=== PATIENT | male | born 1965 | race Caucasian/White ===

== ENCOUNTER 2017-10-08 17:49 | Inpatient (IN) ==
[~2017-10-08 17:49] MED LIST: Glycopyrrolate Inj 1 MG/5 ML Syringe IV.PUSH ONE; Lidocaine PF 1% Inj 5 ML Syringe INFILTRATN ONE; Phenylephrine/NS 1000 MCG/10ML Syringe IV.PUSH ONE
--- NOTE | 2017-10-08 19:29 | P.CON ---
History of Present Illness Service: hand surgery Reason for Consult: right hand injury Primary Care Provider: Suellen Arenas Chief Complaint: right hand injury by yarn tester History of Present Illness: Patient is a 52 year old left hand dominant male presenting with injury to the right hand this morning. Patient was trying to the fix the yarn tester blade this morning resulting in injury to the right hand. complains of laceration to the right middle, ring and index fingers. associated with bleeding. denies any numbness. patient was seen at [facility], had x-rays and then later transferred to [facility] as there was no power at [facility]. denies any other injuries. Review of Systems denies any fever, shortness of breath or chest pain PMFSH - Medical History Medical History: Medical History (Last Updated 10/08/17 @ 19:41 by Placido Ruiz MD) Diabetes Hypertension Hypothyroidism Physical Exam Narrative: examination of the right hand:laceration involving the middle finger over the dorsal aspect with avulsion of the nail plate proximally with exposed distal phalanx.finger hanging by the volar soft tissues. intact volar soft tissue. intact capillary refill, intact pulp sensation. laceration involving the pulp of the index finger with exposed soft tissues laceration over the pulp and lateral nail fold involving the ring finger x-rays of the right hand done at [facility] was reviewed: comminuted fracture involving the distal phalanx shaft right middle finger - Constitutional no acute distress - Routine HEENT Exam Head: Present: normocephalic, atraumatic - Routine Respiratory Exam Comments: air entry equal on both sides, no adventitous sounds - Routine Cardiovascular Exam Comments: S1 S2 normal, no murmurs Assessment and Plan - Assessment (1) Open fracture of distal phalanx of right middle finger Code(s): S62.632B - Displaced fracture of distal phalanx of right middle finger , initial encounter for open fracture Status: Acute (2) Laceration of right index finger Code(s): S61.210A - Laceration without foreign body of right index finger without damage to nail, initial encounter Status: Acute (3) Laceration of right ring finger Code(s): S61.214A - Laceration without foreign body of right ring finger without damage to nail, initial encounter Status: Acute - Plan take the patient emergently for wash, debridement, ORIF distal phalanx, nail bed repair right middle finger. repair of lacerations of the right index and ring fingers. keep the patient npo (2) Laceration of right index finger Qualifiers: Encounter type: initial encounter Damage to nail status: without damage Foreign body presence: without foreign body Qualified Code(s): S61.210A - Laceration without foreign body of right index finger without damage to nail, initial encounter (3) Laceration of right ring finger Qualifiers: Encounter type: initial encounter Damage to nail status: without damage Foreign body presence: without foreign body Qualified Code(s): S61.214A - Laceration without foreign body of right ring finger without damage to nail, initial encounter
[2017-10-08] MEDS ORDERED: ceFAZolin 2 GM Premix Inj 2 GM/50 ML PIGGYBACK IV.SIG ONE (19:38)
[2017-10-08] MEDS ORDERED: Neomycin/Polymyxin G.U. Irrigant 1 ML Ampul ONE (20:10)
[2017-10-08] MEDS ORDERED: Bupivacaine PF 0.5% Inj 30 ML Vial ONE (20:15)
[2017-10-08] MEDS ORDERED: Lidocaine PF 2% Inj 10 ML Ampul ONE (20:15)
--- NOTE | 2017-10-08 21:16 | P.OP ---
- Preoperative Diagnosis (1) Open fracture of distal phalanx of right middle finger (2) Laceration of right index finger (3) Laceration of right ring finger (4) Laceration of right middle finger w/o foreign body with damage to nail - Postoperative Diagnosis (1) Laceration of right middle finger w/o foreign body with damage to nail (2) Open fracture of distal phalanx of right middle finger (3) Laceration of right index finger (4) Laceration of right ring finger Date of procedure: 10/08/17 Procedure: wash, debridement, open reduction internal fixation distal phalanx with k-wire right middle finger repair nail bed and laceration right middle finger repair of lacerations right index and ring fingers Implants: 0.035 k-wire X 1 Anesthesia: GETA Surgeon: Placido Ruiz MD Estimated blood loss (mL): 5 Tourniquet time (min): 48 Pathology: none sent Operation and Findings: transverse laceration through the nail bed at the junction of germinal and sterile matrix with exposed distal phalanx shaft fracture and involvement of the radial and ulnar nail folds along with part of pulp laceration of the pulp involving the ring finger measuring 3cms laceration of the pulp involving the index finger measuring 1-2 cms
[2017-10-08] MEDS ORDERED: fentaNYL Citrate Inj 100 MCG/2 ML Ampul ONE (21:25)
--- NOTE | 2017-10-08 21:55 | MP ---
cc: Placido Ruiz MD DATE OF OPERATION: 10/08/2017 DATE OF SURGERY: 10/08/2017. PREOPERATIVE DIAGNOSIS: Open distal phalanx shaft fracture, right middle finger, with laceration involving the nail bed and lateral nail folds. Laceration involving the right index finger pulp and laceration involving the right ring finger pulp. POSTOPERATIVE DIAGNOSIS: Laceration of the right finger with involvement of the nail bed and open, comminuted, displaced shaft fracture, distal phalanx, laceration involving the pulp of the right index finger and laceration involving the pulp of the right ring finger. PROCEDURE PERFORMED: Wash, debridement, open reduction and internal fixation of distal phalanx with K-wire, right middle finger, repair nail bed and laceration, right middle finger, repair lacerations of right index and ring finger pulps. SURGEON: Placido Ruiz MD ANESTHESIA: General. ESTIMATED BLOOD LOSS: 5 mL TOURNIQUET TIME: 48 minutes at 250 mmHg. IMPLANTS USED: 0.035 wires x 1. DISPOSITION: To PACU stable. INDICATIONS FOR PROCEDURE: The patient is a 52-year-old left hand dominant male who presented to the ED with laceration to the right hand this morning, when he was fixing the lawnmower. The patient complains of wound over the right middle, ring and index fingers. On examination, he had a laceration involving the nail plate in a transverse fashion, with exposed distal phalanx at the middle finger and laceration involving the pulp along the radial aspect of the index finger and ring finger. An x-ray showed a comminuted, displaced distal phalanx shaft fracture involving the middle finger. The patient was initially seen at [facility] and he was transferred to [facility]. The patient was explained the risks and benefits of the procedure. The patient was consented for open reduction and internal fixation of distal phalanx, right middle finger along with repair of nail bed and lacerations. The patient was explained the risks and benefits of the procedure. DESCRIPTION OF PROCEDURE: The patient was brought to the operating room under general anesthesia. The right upper extremity was sterilely prepped and draped. After limb elevation, tourniquet was inflated to 250 mmHg. The previously placed sutures were removed. Intraoperative findings included a transverse laceration involving the nail bed at the junction of germinal and sterile matrix in a transverse fashion measuring about 3 cm involving the lateral nail folds along with part of the pulp with open, displaced distal phalanx fracture shaft. This was viewed after removal of the nail plate. An oblique laceration involving the radial aspect of the index finger pulp measuring about 3 cm and laceration along the radial aspect of the pulp of the ring finger, measuring about 1-2 cm. Attention was initially directed to the middle finger. Thorough wash of the wound was carried out using normal saline mixed with irrigant, about 750 mL of solution was used. Following which, attention was directed to the distal phalanx. A 0.035 K-wire was introduced in antegrade fashion from the distal phalanx shaft across the distal fragment, exiting at the hyponychium. Distal phalanx was then reduced and the K-wire was directed in retrograde fashion crossing the proximal phalanx. C-arm was used to confirm the fracture reduction and K-wire placement. The K-wire was then passed across the distal interphalangeal joint. Multiple C-arm views were obtained. The distal phalanx fracture was well reduced and the K-wires were replaced within the distal phalanx and the DIP joint. The nail bed was then repaired using 6-0 chromic in interrupted fashion. The lateral nail folds were then repaired using 4-0 nylon in a horizontal mattress interrupted fashion along with the laceration of the pulp. The nail plate was then cleared of the soft tissue, soaked in Betadine solution and was reinserted underneath the eponychial skin fold. The K-wire was cut and protected with surface involved. Attention was then directed to the index finger. The laceration was thoroughly cleaned with normal saline mixed with irrigant and the laceration was sutured using 5-0 nylon in horizontal mattress interrupted fashion. Attention was then directed to the ring finger, laceration was cleaned with normal saline mixed with irrigant and suturing of laceration was carried out using 5-0 nylon in a horizontal mattress interrupted fashion. Xeroform, bacitracin dressings were applied. Tourniquet was deflated at 48 minutes. He had good distal circulation after release of the tourniquet. About 5 mL of local anesthetic solution containing mixture of 2% and 0.5% Marcaine were injected as a digital block. Bulky finger dressing was applied to the middle finger and a splint was applied across the middle finger. The lacerations over the index and ring fingers were dressed with Xeroform and dressings. The patient was recovered and sent to recovery room in stable condition. He will be discharged home today on p.o. antibiotics and pain medication. He will followup in 2-3 days for dressing change. MD CARLOS A Pederson , 09:23 PM , 09:54 PM JAIDEN
== END 2017-10-08 22:27 | disposition home or self-care (01) ==
LOC: HPAC 19:21
PROVIDERS: ADMIT Surgery Surgery of the Hand; ATTEND Surgery Surgery of the Hand